=== PATIENT | female | born 1990 ===

== ENCOUNTER 2020-12-10 07:51 | Emergency (ER) | payer SELFPAY ==
[~2020-12-10] VITALS: Ht 167.6 cm; Wt 68.0 kg
== END 2020-12-11 13:30 | disposition home or self-care (01) ==
LOC: ED 07:51 → EDBD 07:53 → ED 07:53
DX: R41.82 Altered mental status, unspecified (principal); F29 Unspecified psychosis not due to a substance or known physiological condition; F15.129 Other stimulant abuse with intoxication, unspecified
CPT/HCPCS: 80053; 81001; 84443; 84703; 85025; 99285; G0480; J7030

== ENCOUNTER 2020-12-16 12:51 | Emergency (ER) | payer SELFPAY ==
[~2020-12-16] VITALS: Ht 167.6 cm; Wt 68.0 kg
--- OUTSIDE RECORDS SUMMARY | 2020-12-17 13:13 | XMS ---
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 Abiodun has no Care Guidelines for this patient. [facility]12 MO[facility] NOTE: Visits indicate total known visits. ED/C VISIT TRACKING (12 MO.) 12[facility]16[facility]2020 12[facility] COMPLAINT: - MEDICAL CLEARANCE 12/10/2020 07:53 [facility] [place] TYPE: Emergency COMPLAINT: - ALT LOC DIAGNOSES: - Unspecified psychosis not due to a substance or known physiological condition - Altered mental status, unspecified - Other stimulant abuse with intoxication, unspecified INPATIENT VISIT TRACKING (12 MO.) No inpatient visits to display in this time frame [email or web address]
== END 2020-12-17 18:16 | disposition home or self-care (01) ==
LOC: ED 12:51
DX: F23 Brief psychotic disorder (principal); F05 Delirium due to known physiological condition; F15.10 Other stimulant abuse, uncomplicated; Z20.822 Contact with and (suspected) exposure to COVID-19
CPT/HCPCS: 80053; 81001; 84443; 84703; 85025; 99284; A9270-GY; C9803; G0480; U0003